=== PATIENT | male | born 1945 | race Caucasian/White ===

== ENCOUNTER 2023-06-06 09:50 | Emergency (ER) | payer BC ==
[~2023-06-06] VITALS: Ht 170.2 cm; Wt 106.6 kg
[2023-06-06] MEDS ORDERED: predniSONE 20 MG TABLET ONE (10:59)
[2023-06-06] MEDS ORDERED: predniSONE 20 MG TABLET PO ONE (11:00)
[2023-06-06] MEDS ORDERED: IPRATROPIUM NEB FS 0.5 MG/2.5 ML AMPUL.NEB NEB ONE (11:00)
[2023-06-06] MEDS ORDERED: ALBUTEROL FS 2.5 MG/3 ML VIAL.NEB CONTNEB ONE (11:00)
[2023-06-06 11:09] LABS: BASOPHILS % (AUTO) 0.9 % (0.0-2.0); EOSINOPHILS % (AUTO) 0.8 % (0.0-6.0); HEMATOCRIT 36 % (39-51); HEMOGLOBIN 12.2 g/dL (13.5-17.5); LYMPHOCYTES # (AUTO) 0.5 K/uL (0.8-4.8); LYMPHOCYTES % (AUTO) 12.9 % (20.0-44.0); MEAN CORPUSCULAR HEMOGLOBIN 31 PG (26.0-33.0); MEAN CORPUSCULAR HGB CONC 34 g/dl (31.0-36.0); MEAN CORPUSCULAR VOLUME 91 fL (80-96); MONOCYTES # (AUTO) 0.7 K/uL (0.1-1.30); MONOCYTES % (AUTO) 18.1 % (2.0-12.0); NEUTROPHILS # (AUTO) 2.7 K/uL (1.8-8.9); NEUTROPHILS % (AUTO) 67.3 % (43.0-81.0); PLATELET COUNT (AUTO) 157 K/uL (150-450); RED BLOOD CELL COUNT(AUTO) 3.99 MIL/uL (4.5-6.0); RED CELL DISTRIBUTION WIDTH 14.2 % (11.5-15.0)
[2023-06-06] MEDS ORDERED: IPRATROPIUM NEB FS 0.5 MG/2.5 ML AMPUL.NEB ONE (11:11)
[2023-06-06] MEDS ORDERED: ALBUTEROL FS 2.5 MG/0.5 ML VIAL.NEB ONE (11:11)
[2023-06-06 11:12] LABS: CALCIUM, SERUM 8.8 mg/dL (8.5-10.1); CARBON DIOXIDE 25 mmol/L (21-32); CHLORIDE 101 mmol/L (98-107); CREATININE 1.1 mg/dL (0.6-1.3); GLUCOSE 103 mg/dL (74-106); POTASSIUM 3.9 mmol/L (3.5-5.1); SODIUM SERUM 136 mmol/L (136-145); UREA NITROGEN, BLOOD 14 mg/dL (7-18)
[2023-06-06 11:18] VITALS: O2SAT 96
[2023-06-06] MEDS ORDERED: ACETAMINOPHEN 325 MG TABLET PO ONE (11:30)
[2023-06-06] MEDS ORDERED: KETOROLAC TROMETHAMINE 15 MG/ML VIAL IV ONE (11:30)
[2023-06-06] MEDS ORDERED: ACETAMINOPHEN 325 MG TABLET ONE (11:32)
[2023-06-06] MEDS ORDERED: KETOROLAC TROMETHAMINE 15 MG/ML VIAL ONE (11:32)
[2023-06-06 12:18] VITALS: O2SAT 98
[2023-06-06] MEDS ORDERED: PRED20TA PO (12:19)
[2023-06-06] MEDS ORDERED: ALBU18HF2 INH (12:19)
[2023-06-06] MEDS ORDERED: BENZ-13 PO (12:19)
[2023-06-06 12:40] VITALS: BP 130/67; TEMP 100.4; O2SAT 100
== END 2023-06-06 12:40 | disposition home or self-care (01) ==
LOC: ER 09:50
DX: J45.901 Unspecified asthma with (acute) exacerbation (principal); J06.9 Acute upper respiratory infection, unspecified; R05.9 Cough, unspecified; R09.81 Nasal congestion; R50.9 Fever, unspecified; R07.89 Other chest pain; E78.00 Pure hypercholesterolemia, unspecified; Z20.822 Contact with and (suspected) exposure to COVID-19
CPT/HCPCS: 99285; 96374; 71045; 87426; 93005; 87804 ×2; 85025; 80048; 36415; 87420; 84484; 94640; J7512; J1885; C9803

== ENCOUNTER 2023-06-10 09:48 | Emergency (ER) | payer BC ==
[~2023-06-10] VITALS: Ht 172.7 cm; Wt 106.6 kg
[~2023-06-10 09:48] MED LIST: ALBU18HF2 INH; BENZ-13 PO; PRED20TA PO
[2023-06-10] MEDS ORDERED: ALBUTEROL FS 2.5 MG/3 ML VIAL.NEB ONE (12:13)
[2023-06-10] MEDS ORDERED: IPRATROPIUM NEB FS 0.5 MG/2.5 ML AMPUL.NEB ONE (12:13)
[2023-06-10 12:14] LABS: BASOPHILS % (AUTO) 0.2 % (0.0-2.0); EOSINOPHILS % (AUTO) 0.1 % (0.0-6.0); HEMATOCRIT 39 % (39-51); LYMPHOCYTES # (AUTO) 0.6 K/uL (0.8-4.8); LYMPHOCYTES % (AUTO) 11.6 % (20.0-44.0); MEAN CORPUSCULAR HEMOGLOBIN 30 PG (26.0-33.0); MEAN CORPUSCULAR HGB CONC 33 g/dl (31.0-36.0); MEAN CORPUSCULAR VOLUME 92 fL (80-96); MONOCYTES # (AUTO) 0.2 K/uL (0.1-1.30); NEUTROPHILS # (AUTO) 4.1 K/uL (1.8-8.9); NEUTROPHILS % (AUTO) 83.1 % (43.0-81.0); PLATELET COUNT (AUTO) 187 K/uL (150-450); RED BLOOD CELL COUNT(AUTO) 4.31 MIL/uL (4.5-6.0); RED CELL DISTRIBUTION WIDTH 14.2 % (11.5-15.0); WHITE BLOOD COUNT (AUTO) 4.9 K/uL (4.3-11.0)
[2023-06-10 12:19] VITALS: O2SAT 96
[2023-06-10] MEDS: IPRATROPIUM NEB FS 0.5 MG/2.5 ML AMPUL.NEB NEB STA (12:19)
[2023-06-10] MEDS: ALBUTEROL FS 2.5 MG/3 ML VIAL.NEB NEB STA (12:19)
[2023-06-10 12:25] LABS: CALCIUM, SERUM 9.5 mg/dL (8.5-10.1); CARBON DIOXIDE 27 mmol/L (21-32); CHLORIDE 102 mmol/L (98-107); GLUCOSE 140 mg/dL (74-106); POTASSIUM 4.2 mmol/L (3.5-5.1); SODIUM SERUM 138 mmol/L (136-145); UREA NITROGEN, BLOOD 20 mg/dL (7-18)
[2023-06-10 12:34] VITALS: O2SAT 97
[2023-06-10 12:38] LABS: NT-PRO BNP 103 pg/mL (0-125)
[2023-06-10 13:57] VITALS: BP 137/77; TEMP 98.2; O2SAT 94
== END 2023-06-10 13:57 | disposition home or self-care (01) ==
LOC: ER 09:49
DX: R09.89 Other specified symptoms and signs involving the circulatory and respiratory systems (principal); E78.00 Pure hypercholesterolemia, unspecified; J45.909 Unspecified asthma, uncomplicated; Z20.822 Contact with and (suspected) exposure to COVID-19
CPT/HCPCS: 36415; 71045-TC; 80048-TC; 83880; 84484-TC; 85025-TC